=== PATIENT | male | born 1995 | race Caucasian/White ===

== ENCOUNTER → 2022-04-09 | Outpatient (CLI) | payer OTHER ==
--- NOTE | 2022-04-09 11:52 | Diagnostic Imaging Report ---
EXAMINATION: US Scrotum w/ Duplex. TECHNIQUE: Multiple Real-time grayscale images were obtained of the scrotum in various projections bilaterally. Color Doppler images were also obtained. HISTORY: Left testicular pain. COMPARISON: None available. FINDINGS: The right testis has a homogeneous echogenic appearance without intratesticular mass or hyperemia and measures 5.0 x 2.7 x 3.6 cm. The right epididymis is normal. No extratesticular mass. No hydrocele or varicocele. The left testis has a homogeneous echogenic appearance without intratesticular mass or hyperemia, and measures 4.9 x 3.2 x 3.1 cm. The left epididymis is normal. No extratesticular mass. There is a moderate left hydrocele with mild debris. No varicocele. Color and pulsed Doppler imaging demonstrates symmetric, flow with normal arterial waveforms obtained from each testis. IMPRESSION: Moderate left hydrocele. Dictated by: Dictated on workstation # [id number]
== END ==
LOC: RAD 11:30
PROVIDERS: ATTEND Nurse Practitioner Family
DX: N50.89 Other specified disorders of the male genital organs (principal); N43.3 Hydrocele, unspecified
CPT/HCPCS: 76870